=== PATIENT | female | born 1990 | race Two or more races ===

== ENCOUNTER 2020-07-23 19:14 | Emergency (ER) | payer OTHER ==
[~2020-07-23] VITALS: Ht 160 cm; Wt 54.4 kg
== END 2020-07-23 22:22 | disposition home or self-care (01) ==
LOC: ER 19:14
DX: R07.89 Other chest pain (principal)

== ENCOUNTER 2021-04-07 11:33 | Emergency (ER) | payer OTHER ==
[~2021-04-07] VITALS: Ht 160 cm; Wt 54.0 kg
== END 2021-04-07 16:34 | disposition home or self-care (01) ==
LOC: ER 11:33
DX: O26.891 Other specified pregnancy related conditions, first trimester (principal); R10.2 Pelvic and perineal pain; Z3A.08 8 weeks gestation of pregnancy